=== PATIENT | male | born 1970 | race Caucasian/White ===

== ENCOUNTER 2022-03-08 21:21 | Emergency (ER) | payer OTHER ==
[~2022-03-08] VITALS: Ht 175.3 cm; Wt 96.4 kg
[~2022-03-08 21:21] MED LIST: BENADRYL ALLERG25 MG PO; CARVEDILOL25 MG PO; COZAAR50 MG PO; IBUPROFEN400 MG PO; MAGNESIUM OXID250 MG PO; PREDNISONE20 MG PO; PRILOSEC20 MG PO
[2022-03-08] MEDS ORDERED: FLOMAX0.4 MG PO (23:22)
[2022-03-08] MEDS ORDERED: ONDANSETRON ODT4 MG PO (23:22)
[2022-03-08] MEDS ORDERED: IBU600 MG PO (23:22)
== END 2022-03-08 23:45 | disposition home or self-care (01) ==
LOC: ED 21:21
DX: R10.9 Unspecified abdominal pain (principal); I10 Essential (primary) hypertension; Z88.8 Allergy status to other drugs, medicaments and biological substances; Z91.018 Allergy to other foods; Z88.5 Allergy status to narcotic agent; Z79.899 Other long term (current) drug therapy; Z79.52 Long term (current) use of systemic steroids
CPT/HCPCS: 36415; 74150; 80048; 81001; 85025; 96374; 96375; 99284-25; A9270; J1885; J2405; J7030